=== PATIENT | male | born 1960 | race Caucasian/White ===

== ENCOUNTER 2018-10-07 03:34 | Inpatient (IN) | payer BC ==
[~2018-10-07] VITALS: Ht 172.7 cm; Wt 92.0 kg
[2018-10-07] MEDS ORDERED: STATIN (03:43)
[2018-10-07] MEDS ORDERED: ASPI-515 PO (03:43)
[2018-10-07] MEDS ORDERED: ASPIRIN 81 MG TABLET CHEW ONE (03:55)
[2018-10-07] MEDS ORDERED: ONDANSETRON 2MG/ML, 2ML ONE (03:56)
[2018-10-07] MEDS: MORPHINE SULFATE 4 MG/ML, 1ML IVPush PRN ×4 (03:56→04:47)
[2018-10-07] MEDS ORDERED: MORPHINE SULFATE 4 MG/ML, 1ML ONE ×4 (03:56→04:44)
[2018-10-07] MEDS ORDERED: ASPIRIN 81 MG TABLET CHEW PO ONE (04:00)
[2018-10-07] MEDS ORDERED: SODIUM CHLORIDE 0.9% 1,000ML IVBOLUS ONE (04:00)
[2018-10-07] MEDS ORDERED: ATROPINE SYRINGE 0.1 MG/ML, 10ML IVPush ONE (04:00)
[2018-10-07] MEDS ORDERED: ONDANSETRON 2MG/ML, 2ML IVPush ONE (04:00)
[2018-10-07] MEDS ORDERED: ATROPINE SYRINGE 0.1 MG/ML, 10ML ONE ×2 (04:01→09:20)
[2018-10-07 04:07] LABS: BASOPHILS # (AUTO) 0.06 x10^3/uL (0-0.1); BASOPHILS % (AUTO) 1 % (0-1); EOSINOPHILS # (AUTO) 0.16 x10^3/uL (0-0.4); EOSINOPHILS % (AUTO) 2 % (1-7); LYMPHOCYTES # (AUTO) 4.51 x10^3/uL (1-3.4); LYMPHOCYTES % (AUTO) 43 % (22-44); MD NO; MEAN CORPUSCULAR HEMOGLOBIN 33.5 pg (27.5-34.5); MEAN CORPUSCULAR HGB CONC 34.7 g/dL (33.2-36.2); MEAN CORPUSCULAR VOLUME 96.5 fL (81-97); MEAN PLATELET VOLUME 8.9 fL (7.4-10.4); MONOCYTES # (AUTO) 0.69 x10^3/uL (0.2-0.8); MONOCYTES % (AUTO) 7 % (2-9); NEUTROPHILS # (AUTO) 5.18 x10^3/uL (1.8-6.8); NEUTROPHILS % (AUTO) 49 % (42-75); PLATELET COUNT 183 x10^3/uL (130-400); RED CELL DISTRIBUTION WIDTH 13.2 % (9.4-14.8)
[2018-10-07 04:17] LABS: ALBUMIN 3.7 g/dL (3.4-5.0); ANION GAP 9 mmol/L (5-15); CALCIUM 8.5 mg/dL (8.5-10.1); CHLORIDE 109 mmol/L (98-107); CREATININE 1.14 mg/dL (0.7-1.3)
[2018-10-07 04:24] LABS: TROPONIN I 0.251 ng/mL (0.000-0.045)
[2018-10-07] MEDS ORDERED: HEPARIN 25,000 UNITS/500ML PMX 500 ML ONE (04:37)
[2018-10-07] MEDS ORDERED: HEPARIN 5,000 UNITS/ML, 1ML ONE (04:37)
[2018-10-07] MEDS ORDERED: HEPARIN 25,000 UNITS/500ML PMX 500 ML IV PRN (05:00)
[2018-10-07] MEDS ORDERED: HEPARIN 5,000 UNITS/ML, 1ML IV ONE (05:00)
[2018-10-07] MEDS ORDERED: TICAGRELOR 90 MG TABLET ONE (05:03)
[2018-10-07] MEDS ORDERED: FENTANYL PF 100 MCG/2ML ONE (05:03)
[2018-10-07] MEDS ORDERED: MIDAZOLAM 1 MG/ML, 5ML ONE (05:03)
[2018-10-07] MEDS ORDERED: VERAPAMIL 2.5 MG/ML, 2ML ONE (05:03)
[2018-10-07] MEDS ORDERED: LIDOCAINE 2%, 20ML ONE (05:04)
[2018-10-07] MEDS ORDERED: HEPARIN 1,000 UNITS/ML, 10ML ONE (05:04)
[2018-10-07] MEDS ORDERED: BIVALIRUDIN 250 MG ONE (05:04)
[2018-10-07] MEDS ORDERED: NITROGLYCERIN 5 MG/ML, 10ML ONE (05:04)
[2018-10-07] MEDS ORDERED: PHENYLEPHRINE 10 MG/ML ONE (05:12)
[2018-10-07 05:22] LABS: INTERNATIONAL NORMALIZED RATIO 1.03 (0.93-1.1); PROTHROMBIN TIME 10.9 Seconds (9.6-11.5)
[2018-10-07] MEDS: SODIUM CHLORIDE 0.9% 1,000 ML IV SCH ×3 (06:04→22:04)
[2018-10-07 06:24] VITALS: BP 117/70
[2018-10-07] MEDS ORDERED: LISINOPRIL 10 MG TABLET PO ONE (06:30)
[2018-10-07] MEDS ORDERED: ONDANSETRON 2MG/ML, 2ML IVPush PRN (06:30)
[2018-10-07] MEDS ORDERED: ROSU40TA PO (06:40)
[2018-10-07 06:54] VITALS: BP 117/70
[2018-10-07] MEDS: METOPROLOL TARTRATE 25 MG TABLET PO SCH ×2 (07:50→21:00)
[2018-10-07] MEDS: ASPIRIN 81 MG TABLET EC PO SCH (09:24)
[2018-10-07] MEDS: ISOSORBIDE MONONITRATE ER 30 MG TABLET PO SCH (09:24)
[2018-10-07] MEDS: TICAGRELOR 90 MG TABLET PO SCH ×2 (17:39→21:00)
[2018-10-07] MEDS: ATORVASTATIN 80 MG TABLET PO SCH (21:17)
[2018-10-07] MEDS: DIPHENHYDRAMINE 50 MG/ML, 1ML IVPush PRN (22:30)
[2018-10-08 04:00] VITALS: BP 96/53
[2018-10-08 04:31] LABS: ANION GAP 7 mmol/L (5-15); CALCIUM 8.1 mg/dL (8.5-10.1); CHLORIDE 112 mmol/L (98-107); CREATININE 0.92 mg/dL (0.7-1.3)
[2018-10-08] MEDS: SODIUM CHLORIDE 0.9% 1,000 ML IV SCH (06:04)
[2018-10-08] MEDS: ISOSORBIDE MONONITRATE ER 30 MG TABLET PO SCH (08:37)
[2018-10-08] MEDS: TICAGRELOR 90 MG TABLET PO SCH (08:37)
[2018-10-08] MEDS: ASPIRIN 81 MG TABLET EC PO SCH (08:37)
[2018-10-08 11:00] VITALS: BP 117/55
[2018-10-08 13:16] VITALS: BP 120/71
[2018-10-08] MEDS ORDERED: DIPHENHYDRAMINE 50 MG/ML, 1ML IVPush PRN (16:00)
[2018-10-08] MEDS: PRASUGREL 10 MG TABLET PO SCH (16:27)
[2018-10-08 19:49] VITALS: BP 129/75
[2018-10-08] MEDS: ATORVASTATIN 80 MG TABLET PO SCH (20:38)
[2018-10-08] MEDS: DIPHENHYDRAMINE 50 MG/ML, 1ML IVPush PRN (22:07)
[2018-10-09 02:13] VITALS: BP 123/78
[2018-10-09 06:37] VITALS: BP 152/90
[2018-10-09] MEDS: PRASUGREL 10 MG TABLET PO SCH (07:48)
[2018-10-09] MEDS: ASPIRIN 81 MG TABLET EC PO SCH (07:48)
[2018-10-09] MEDS: ISOSORBIDE MONONITRATE ER 30 MG TABLET PO SCH (07:48)
[2018-10-09] MEDS ORDERED: ZOLPIDEM 5MG TABLET PO PRN (10:00)
[2018-10-09] MEDS ORDERED: FUROSEMIDE 20 MG/2 ML IV ONE (11:00)
[2018-10-09 12:15] VITALS: BP 130/70
[2018-10-09 19:58] VITALS: BP 123/76
[2018-10-09] MEDS: ATORVASTATIN 80 MG TABLET PO SCH (19:58)
[2018-10-10 02:15] VITALS: BP 117/75
[2018-10-10 05:36] LABS: CHLORIDE 109 mmol/L (98-107)
[2018-10-10 05:43] LABS: ANION GAP 10 mmol/L (5-15); CALCIUM 8.5 mg/dL (8.5-10.1); CREATININE 0.91 mg/dL (0.7-1.3)
[2018-10-10 08:24] VITALS: BP 105/64
[2018-10-10] MEDS: ISOSORBIDE MONONITRATE ER 30 MG TABLET PO SCH (08:25)
[2018-10-10] MEDS: ASPIRIN 81 MG TABLET EC PO SCH (08:25)
[2018-10-10] MEDS: PRASUGREL 10 MG TABLET PO SCH (08:25)
[2018-10-10] MEDS ORDERED: PRAS10TA4 PO (08:47)
[2018-10-10] MEDS ORDERED: ISOS30TA8 PO (08:47)
[2018-10-10 09:26] VITALS: BP 107/62
== END 2018-10-10 10:40 | disposition home or self-care (01) | DRG 247 ==
LOC: ED 04:35 → EDIP 06:08 → CCU 06:16 → CSU 17:27 → CCU 21:14 → 5SO 10-08 10:51 → DCLOUNGE 10-10 10:08
PROVIDERS: ADMIT Internal Medicine Cardiovascular Disease; ATTEND Internal Medicine Cardiovascular Disease
PROC: 027034Z Dilation of Coronary Artery, One Artery with Drug-eluting Intraluminal Device, Percutaneous Approach (ICD-10-PCS; principal; 2018-10-07)
PROC: 4A023N7 Measurement of Cardiac Sampling and Pressure, Left Heart, Percutaneous Approach (ICD-10-PCS; 2018-10-07)
PROC: B2111ZZ Fluoroscopy of Multiple Coronary Arteries using Low Osmolar Contrast (ICD-10-PCS; 2018-10-07)
PROC: B2151ZZ Fluoroscopy of Left Heart using Low Osmolar Contrast (ICD-10-PCS; 2018-10-07)
DX: I21.19 ST elevation (STEMI) myocardial infarction involving other coronary artery of inferior wall (principal); I25.10 Atherosclerotic heart disease of native coronary artery without angina pectoris; F17.200 Nicotine dependence, unspecified, uncomplicated; E78.5 Hyperlipidemia, unspecified; I25.2 Old myocardial infarction; Z82.3 Family history of stroke; Z82.49 Family history of ischemic heart disease and other diseases of the circulatory system; Z95.5 Presence of coronary angioplasty implant and graft; Z71.6 Tobacco abuse counseling; T50.995A Adverse effect of other drugs, medicaments and biological substances, initial encounter; Y92.89 Other specified places as the place of occurrence of the external cause; R00.1 Bradycardia, unspecified
CPT/HCPCS: 36415; 71045; 80047; 80048; 82040; 84484; 85014; 85018; 85025; 85520; 85610; 85730; 87081; 93005; 93306; 93458; 96374; 96375; 99156; 99291; C1769; C1894; G0378; J0461; J0583; J1644; J2250; J2405; J3010; J3490; C1725; C1874; C1887; J1200; J1940; J2370; J7030; Q9967